=== PATIENT | female | born 1975 | race Caucasian/White ===

== ENCOUNTER 2019-05-30 10:50 | Emergency (ER) | payer MEDICAID, MEDICARE ==
[~2019-05-30] VITALS: Ht 172.7 cm; Wt 52.6 kg
[~2019-05-30 10:50] MED LIST: ALPR1TAB2 PO; CARI-277 PO; ENTECAVIR PO; FLU05NSL; ZOLP10TA PO
[2019-05-30 13:28] VITALS: BP 123/81
== END 2019-05-30 13:58 | disposition home or self-care (01) ==
LOC: ER 10:50
DX: G89.4 Chronic pain syndrome (principal); M54.5 Low back pain; F17.210 Nicotine dependence, cigarettes, uncomplicated; F12.10 Cannabis abuse, uncomplicated; F41.9 Anxiety disorder, unspecified; Z76.0 Encounter for issue of repeat prescription; Z88.6 Allergy status to analgesic agent
CPT/HCPCS: 81002; 81025

== ENCOUNTER 2020-04-29 15:21 | Inpatient (IN) | payer MEDICARE, MEDICAID ==
[~2020-04-29] VITALS: Ht 172.7 cm; Wt 52.2 kg
[2020-04-29] MEDS ORDERED: SODIUM CHLORIDE 0.9% 1,000 ML IV ONE ×2 (16:00)
[2020-04-29] MEDS ORDERED: NITROGLYCERIN 0.4 MG SL TAB SL PRN (18:45)
[2020-04-29] MEDS ORDERED: MORPHINE SULF INJ 2 MG/ML SYRINGE 1ML IV PRN (18:45)
[2020-04-29] MEDS ORDERED: HYDROmorphone HCL 2 MG/ML VL IV ONE (19:30)
[2020-04-29] MEDS ORDERED: ONDANSETRON HCL 4 MG/2 ML VIAL IV PRN (21:30)
[2020-04-29] MEDS ORDERED: HYDROcodone-ACET 7.5/325MG TAB PO PRN (21:30)
[2020-04-29 21:31] LABS: Basophils # (auto) 0.1 10 ^3/uL (0-0.2); Basophils % (auto) 0.7 % (0.0-2.0); Eosinophils # (auto) 0.1 10 ^3/uL (0-0.8); Eosinophils % (auto) 1.1 % (0.0-7.0); Hemoglobin 14.7 g/dL (12.2-16.2); Lymphocytes # (auto) 1.2 10 ^3/uL (0.4-5.4); Lymphocytes % (auto) 14.8 % (10.0-50.0); Mean Corpuscular Hemoglobin 33.6 pg (28.0-32.0); Mean Corpuscular Hgb Conc. 34.3 g/dL (32.0-36.0); Monocytes # (auto) 0.5 10 ^3/uL (0-1.3); Monocytes % (auto) 6.6 % (0.0-12.0); Neutrophils # (auto) 6.2 10 ^3/uL (1.6-8.6); Neutrophils % (auto) 76.8 % (37.0-80.0); Nucleated Red Blood Cells % 0.1 %; Platelet Count (auto) 255 10^3/uL (140-450); Red Blood Cells 4.39 10^6/uL (4.0-5.20); Red Cell Distribution Width 12.4 % (11.8-14.3); White Blood Cell 8.1 10^3/uL (4.4-10.8)
[2020-04-29] MEDS ORDERED: OXYC325T14 PO (21:41)
[2020-04-29] MEDS ORDERED: TRAZ300T16 PO (21:41)
[2020-04-29] MEDS ORDERED: AMPH10TA2 PO (21:41)
[2020-04-29] MEDS ORDERED: ZOLP5TAB5 PO (21:41)
[2020-04-29] MEDS ORDERED: DICL1GEL50 TD (21:42)
[2020-04-29] MEDS ORDERED: MULT1TAB70 PO (21:42)
[2020-04-29] MEDS ORDERED: CALC-386 PO (21:42)
[2020-04-29 21:44] LABS: INR 1.05 (0.9-1.15)
[2020-04-29 21:45] LABS: Alanine Aminotransferase 12 U/L (13-56); Anion Gap 5 (5-15); Aspartate Aminotransferase 6 U/L (15-37); BUN/Creatinine Ratio 15.3; Blood Urea Nitrogen 9 mg/dL (7-18); Calcium 8.6 mg/dL (8.5-10.1); Carbon Dioxide 27 mmol/L (21-32); Chloride 105 mmol/L (98-107); GFR African American 141 mL/min; GFR Non-African American 117 mL/min; Glucose 90 mg/dL (74-106); Potassium 4.2 mmol/L (3.5-5.1); Sodium 137 mmol/L (136-145)
[2020-04-29 21:49] LABS: Alkaline Phosphatase 57 U/L (45-117); Bilirubin, Total 0.2 mg/dL (0.2-1.0); Total Protein 7.7 g/dL (6.4-8.2)
[2020-04-29 22:00] VITALS: BP 115/83
[2020-04-29] MEDS ORDERED: TEMAZEPAM 15 MG CAP PO ONE (22:15)
--- NOTE | 2020-04-29 22:49 | NUR ---
tele admit from ED pt arrived via wheelchair awake alert and oriented. pt on room air, no respiratory distress noted or expressed. pt tearful, this oriented her to room, bathroom, bed control, call light and this nurse. pt stated "head hurts" rates pain 9/0-10 scale. this nurse updated pt on plan of care. this nurse offered pt medication that is presently on patients MAR, norco, to which she replied "i have pills stronger than that in my purse". this nurse also let pt know she has meds for sleep, restoril, pt then stated she needed to go have a smoke, signed AMA and was made aware of risks associated with leaving the floor,to which she responded "ill be right back". pt off unit.
[2020-04-29] MEDS ORDERED: SUMAtriptan SUCCINATE 25 MG TAB PO ONE (23:15)
[2020-04-30] MEDS ORDERED: NITROGLYCERIN 0.4 MG SL TAB SL PRN
[2020-04-30] MEDS ORDERED: MULTIPLE VITAMINS W/ MINERALS TAB PO ONE
[2020-04-30] MEDS ORDERED: ONDANSETRON HCL 4 MG/2 ML VIAL IV PRN
[2020-04-30] MEDS ORDERED: ACETAMINOPHEN 325 MG TAB PO PRN
[2020-04-30] MEDS ORDERED: HYDROcodone-ACET 10/325MG TAB PO PRN
[2020-04-30] MEDS ORDERED: ALUM & MAG HYDROX-SIMETH LIQ(MAALOX) 30 ML PO PRN
[2020-04-30] MEDS ORDERED: DOCUSATE SOD 100 MG CAP PO PRN
[2020-04-30 00:07] VITALS: BP 118/70
--- NOTE | 2020-04-30 02:00 | NUR ---
pt complaints of 'migraine', hospitalist paged.
--- NOTE | 2020-04-30 02:45 | NUR ---
paged hospitalist again, no call back from prior. received order.
[2020-04-30] MEDS ORDERED: HYDROcodone-ACET 7.5/325MG TAB PO ONE (03:00)
--- NOTE | 2020-04-30 04:40 | NUR ---
pt requesting to be unhooked from IV in order to smoke, upon entering room pt stated "i feel fine now, tell the doctor im going to go home", upon further inquiry pt stated that she would be having her mother pick her up "after seven". pt stated "people have been coming in here trying to perform tests on me that are irrelevant". this nurse educated pt on risks associated with leaving AMA. to which she replied "i feel fine now", however, while crying. pt refused to elaborate. Addendum: 04/30/20 at 0557 by VIRI TABOR RN RN pt denies desire to leave AMA, states "im going to wait for the doctor and tell them im feeling better so i can get discharged", "im not leaving before i see the doctor". pt continues to state "i feel better".
[2020-04-30] MEDS: BUDESONIDE (INHALATION) 0.5 MG/2 ML NEB NEB SCH ×2 (06:58→10:00)
--- NOTE | 2020-04-30 06:58 | NUR ---
PT REFUSED PULMICORT MED NEB AT THE TIME SHOWN ABOVE. PT SAID SHE DOES NOT HAVE ANY PULMONARY HISTORY THEREFORE SHE WILL NOT TAKE IT. RN WILL BE NOTIFIED.
--- NOTE | 2020-04-30 07:42 | NUR ---
Opening Shift Note Assumed care of patient, awake and alert. No S/S of distress/SOB, patient reports 10/10 headache pain, patient states norco will not work, will page hospitalist for stronger pain medication. Instructed on POC and to call for assist PRN. Bed locked in lowest position, side rails up x2, call light within reach. Will continue to monitor for changes Q1hr and PRN.
[2020-04-30] MEDS: CALCIUM W/VIT D (600MG/400IU) TAB PO SCH ×2 (08:00→17:11)
[2020-04-30] MEDS ORDERED: MORPHINE SULF INJ 2 MG/ML SYRINGE 1ML IV PRN ×2 (08:15)
--- NOTE | 2020-04-30 08:30 | NUR ---
PATIENT REFUSING TELE AND IV FLUIDS PATIENT DOES NOT WANT TO BE CONNECTED TO IV PUMP AND DOES NOT WANT TELE ON AT THIS TIME. EDUCATED PATIENT. PATIENT CONTINUES TO REFUSE. PATIENT IS VERY AGITATED AND UPSET WITH HER SITUATION AND DOES NOT UNDERSTAND WHY TESTS ARE BEING ORDERED WHEN IT DOES NOT RELATE TO HER CURRENT VISIT. WILL ATTEMPT TO RECONNECT PATIENT ONCE PAIN AND ANXIETY HAS RESOLVED.
[2020-04-30] MEDS: HYDROmorphone HCL 2 MG/ML VL IV PRN ×4 (08:33→19:55)
[2020-04-30] MEDS: LORazepam 0.5 MG TAB PO PRN ×3 (08:34→21:51)
[2020-04-30 08:40] VITALS: BP 151/91
[2020-04-30] MEDS: diphenhdrAMINE HCL 50 MG/1 ML VL IV PRN ×2 (08:50→18:11)
[2020-04-30] MEDS: ENOXAPARIN SOD 40 MG/0.4 ML SYRINGE SC SCH (10:00)
[2020-04-30] MEDS: FAMOTIDINE (10MG/ML) 2ML VL IV SCH ×2 (10:03→21:50)
[2020-04-30] MEDS: MULTIPLE VITAMINS W/ MINERALS TAB PO SCH (10:03)
[2020-04-30 12:45] VITALS: BP 112/77
--- NOTE | 2020-04-30 13:00 | NUR ---
PATIENT CONNECTED TO IV FLUIDS AND TELE MONITOR. WILL CONTINUE CARE.
[2020-04-30 15:13] LABS: Basophils # (auto) 0.1 10 ^3/uL (0-0.2); Basophils % (auto) 0.9 % (0.0-2.0); Eosinophils # (auto) 0.1 10 ^3/uL (0-0.8); Eosinophils % (auto) 2.1 % (0.0-7.0); Hematocrit 40.4 % (36.0-46.0); Hemoglobin 14.3 g/dL (12.2-16.2); Lymphocytes # (auto) 1.3 10 ^3/uL (0.4-5.4); Lymphocytes % (auto) 19.8 % (10.0-50.0); Mean Corpuscular Hemoglobin 34.4 pg (28.0-32.0); Mean Corpuscular Hgb Conc. 35.3 g/dL (32.0-36.0); Mean Corpuscular Volume 97.5 fL (80.0-100.0); Monocytes # (auto) 0.5 10 ^3/uL (0-1.3); Monocytes % (auto) 7.6 % (0.0-12.0); Neutrophils # (auto) 4.7 10 ^3/uL (1.6-8.6); Neutrophils % (auto) 69.6 % (37.0-80.0); Platelet Count (auto) 274 10^3/uL (140-450); Red Blood Cells 4.14 10^6/uL (4.0-5.20); Red Cell Distribution Width 12.1 % (11.8-14.3); White Blood Cell 6.7 10^3/uL (4.4-10.8)
[2020-04-30 15:21] LABS: Albumin 3.9 g/dL (3.4-5.0); Anion Gap 4 (5-15); Blood Urea Nitrogen 11 mg/dL (7-18); Calcium 8.3 mg/dL (8.5-10.1); Carbon Dioxide 29 mmol/L (21-32); Chloride 103 mmol/L (98-107); Glucose 81 mg/dL (74-106); Magnesium 2.1 mg/dL (1.6-2.6); Sodium 136 mmol/L (136-145)
[2020-04-30] MEDS ORDERED: LIDOCAINE 2%HCL (LOCAL ANESTH.) INJ 20ML MDV ONE (15:22)
--- NOTE | 2020-04-30 15:25 | NUR ---
PATIENT TAKEN TO LUGGAGE REPAIRER NO DISTRESS NOTED.
[2020-04-30 15:26] LABS: Alanine Aminotransferase 12 U/L (13-56); Alkaline Phosphatase 50 U/L (45-117); Aspartate Aminotransferase 5 U/L (15-37); BUN/Creatinine Ratio 14.1; Bilirubin, Total 0.3 mg/dL (0.2-1.0); Cholesterol 162 mg/dL (< 200); GFR African American 102 mL/min; GFR Non-African American 85 mL/min; HDL Cholesterol 60 mg/dL (40-59); LDL Cholesterol 94 mg/dL (< 100); Phosphorus 3.9 mg/dL (2.5-4.90); Total Protein 7.3 g/dL (6.4-8.2); Triglycerides 79 mg/dL (< 150)
[2020-04-30 15:30] LABS: INR 1.04 (0.9-1.15); Partial Thromboplastin Time 28.6 sec (23.0-31.2)
--- NOTE | 2020-04-30 16:00 | NUR ---
PATIENT BACK FROM INSTRUMENT ENGINEER PROCEDURE NOT DONE. PATIENT WAS NOT NPO NO ONE NOTIFIED PRIMARY RN OF PROCEDURE BEING DONE TODAY. PATIENT IS NOW REFUSING TO HAVE PROCEDURE DONE. PATIENT IS IN 10/10 HEADACHE PAIN, WILL MEDICATE PER MD ORDERS.
[2020-04-30] MEDS: SODIUM CHLORIDE 0.9% 1,000 ML IV SCH ×3 (16:16→20:38)
--- NOTE | 2020-04-30 16:53 | NUR ---
PATIENT NAUSEAS PATIENT STATES SHE THINKS SHE IS ALLERGIC TO ZOFRAN BUT NEEDS NAUSEA MEDICATION. SPOKE WITH MD BO RECEIVED NEW ORDERS. WILL INPUT AND FOLLOW THROUGH.
[2020-04-30 16:56] VITALS: BP 117/71
[2020-04-30] MEDS: PROMETHAZINE HCL 25 MG/ML 1ML IV PRN (18:11)
--- NOTE | 2020-04-30 19:30 | NUR ---
Opening Shift Note Assumed care of patient, awake and alert. Reported pain.pain med will be given. Instructed on POC and to call for assist PRN, will continue to monitor for changes Q1hr and PRN.
--- NOTE | 2020-04-30 20:00 | NUR ---
pt went down to smoke
--- NOTE | 2020-04-30 20:30 | NUR ---
paged hospitalist for pt's sleeping pill and desyrel dosage. new order received stated desyrel will work up tomorrow
[2020-04-30] MEDS ORDERED: TEMAZEPAM 15 MG CAP PO PRN (21:30)
[2020-04-30 21:31] VITALS: BP 122/75
[2020-04-30] MEDS: traZODone HCL 50 MG TAB PO SCH (21:51)
[2020-04-30] MEDS ORDERED: traZODone HCL 50 MG TAB PO SCH (22:00)
[2020-05-01] MEDS: HYDROmorphone HCL 2 MG/ML VL IV PRN ×6 (00:26→21:27)
[2020-05-01] MEDS: diphenhdrAMINE HCL 50 MG/1 ML VL IV PRN ×3 (04:29→21:04)
[2020-05-01] MEDS: PROMETHAZINE HCL 25 MG/ML 1ML IV PRN ×3 (04:29→23:38)
[2020-05-01 05:00] VITALS: BP 109/63
--- NOTE | 2020-05-01 07:30 | NUR ---
closing note endorsed care to day RN, pt is resting with eyes closed, no sign of distress noted at this time
--- NOTE | 2020-05-01 07:35 | NUR ---
Opening Shift Note Assumed care of patient, awake and alert. No S/S of distress/SOB, patient reports 10/10 headache pain, will medicate per MD orders once available. Instructed on POC and to call for assistance as needed. Bed locked in lowest position, side rails up x2, call light within reach. Safety precautions in place. Will continue to monitor for changes Q1hr and PRN.
[2020-05-01] MEDS: CALCIUM W/VIT D (600MG/400IU) TAB PO SCH ×2 (08:00→17:57)
[2020-05-01] MEDS: FAMOTIDINE (10MG/ML) 2ML VL IV SCH ×2 (08:41→21:27)
[2020-05-01] MEDS: LORazepam 0.5 MG TAB PO PRN ×3 (08:41→23:38)
[2020-05-01] MEDS: MULTIPLE VITAMINS W/ MINERALS TAB PO SCH (08:41)
[2020-05-01] MEDS: ENOXAPARIN SOD 40 MG/0.4 ML SYRINGE SC SCH (08:42)
[2020-05-01 09:00] VITALS: BP 111/71
[2020-05-01 13:00] VITALS: BP 122/80
[2020-05-01 16:46] VITALS: BP 103/53
--- NOTE | 2020-05-01 19:11 | NUR ---
IV insertion IV access obtained, via clean sterile technique by inserting 22 gauge catheter at RIGHT FOREARM after 2 attempt(s). IV secured properly. No trauma to site. Patient tolerated well. NOTE: [RIGHT HAND 22G LEAKING AND PAINFUL, REMOVED WITH WITH CLEAN STERILE TECHNIQUE, CATHETER FULLY INTACT. PRESSURE DRESSING APPLIED. PATIENT TOLERATED WELL]
[2020-05-01] MEDS ORDERED: LORazepam 2MG/ML-1ML VIAL IV PRN ×2 (20:30→21:00)
[2020-05-01] MEDS ORDERED: DexAMETHasone INJECTION 10 MG in D5W 5% 50 ML IV ONE (20:45)
--- NOTE | 2020-05-01 21:00 | NUR ---
PT AMBULATING OUTSIDE FREQUENTLY TO SMOKE.
[2020-05-01] MEDS: METOCLOPRAMIDE HCL 10 MG TAB PO SCH (21:03)
[2020-05-01] MEDS: traZODone HCL 50 MG TAB PO SCH (21:04)
--- NOTE | 2020-05-01 21:15 | NUR ---
DR AMIN IN TO SEE PATIENT. PT WANTS PAIN MEDICATION INCREASED ; DILAUDID EVERY TWO HOURS. DR AMIN DECLINED. WILL CONTINUE TO MONITOR.
[2020-05-01] MEDS: ATORVASTATIN 20 MG TAB PO SCH (21:27)
[2020-05-01 22:00] VITALS: BP 114/69
[2020-05-02] MEDS: SODIUM CHLORIDE 0.9% 1,000 ML IV SCH ×2 (02:00→18:15)
[2020-05-02] MEDS: HYDROmorphone HCL 2 MG/ML VL IV PRN ×5 (04:13→21:42)
[2020-05-02] MEDS: diphenhdrAMINE HCL 50 MG/1 ML VL IV PRN ×4 (04:46→20:25)
[2020-05-02 05:00] VITALS: BP 105/61
[2020-05-02] MEDS: PROMETHAZINE HCL 25 MG/ML 1ML IV PRN ×3 (06:21→21:40)
[2020-05-02] MEDS: METOCLOPRAMIDE HCL 10 MG TAB PO SCH ×3 (06:22→20:22)
[2020-05-02] MEDS: LORazepam 0.5 MG TAB PO PRN ×3 (06:22→23:35)
[2020-05-02] MEDS: CALCIUM W/VIT D (600MG/400IU) TAB PO SCH ×2 (08:04→17:57)
[2020-05-02] MEDS: FAMOTIDINE (10MG/ML) 2ML VL IV SCH ×2 (08:04→20:26)
[2020-05-02] MEDS: MULTIPLE VITAMINS W/ MINERALS TAB PO SCH (08:04)
[2020-05-02 08:56] VITALS: BP 109/70
[2020-05-02] MEDS: ASPirin-EC 81 mg tab PO SCH (10:00)
[2020-05-02] MEDS: ENOXAPARIN SOD 40 MG/0.4 ML SYRINGE SC SCH (10:00)
--- NOTE | 2020-05-02 10:30 | NUR ---
PATIENT TAKEN DOWN TO BRAIN MRI AND BROUGHT BACK NO S/S OF DISTRESS NOTED AT THIS TIME.
[2020-05-02 10:36] LABS: Hepatitis A Ab IgM Negative; Hepatitis B Core IgM Negative; Hepatitis C Antibody Negative (Negative)
--- NOTE | 2020-05-02 10:42 | NUR ---
Mikey BO AT THE BEDSIDE. INFORMED OF PATIENT STATUS. INFORMED THAT THIS RN HELD BLOOD THINNERS THIS AM DUE TO PENDING PROCEDURE. INFORMED OF PATIENTS WHEEZING. RECEIVED NEW ORDERS SEE EMAR. Addendum: 05/02/20 at 1858 by GALINA SKELTON RN RN Mikey AWARE OF PATIENTS REPORT OF LACK OF BM.
[2020-05-02] MEDS: DexAMETHasone INJECTION 10 MG in D5W 5% 50 ML IV SCH (11:37)
[2020-05-02] MEDS ORDERED: ALBUTEROL SULF 2.5 MG/0.5ML(0.5%) NEB SOLN NEB PRN (11:45)
[2020-05-02 13:00] VITALS: BP 109/64
--- NOTE | 2020-05-02 13:16 | NUR ---
CALLED AND LEFT MESSAGE WITH [facility]. AWAITING CALL BACK.
--- NOTE | 2020-05-02 15:34 | NUR ---
REGARDING [facility]: SPOKE WITH WADE CHARGE NURSE IN REGARDS TO PATIENTS COMPLICATIONS POST-OP FROM [facility]. PER CHARGE NURSE WADE THERE IS NO SPECIFIC HOSPITAL THEY TRANSFER PATIENTS TOO. THIS RN WAS PROVIDED Mikey RENE'S PHONE NUMBER: [phone]. Mikey BO AWARE. Addendum: 05/02/20 at 1858 by GALINA SKELTON RN RN Mikey BYRNE FOR Mikey BO TO CALL.
[2020-05-02 16:39] VITALS: BP 101/68
--- NOTE | 2020-05-02 19:40 | NUR ---
Opening Shift Note Assumed care of patient, awake and alert x4. No S/S of distress/SOB. Instructed on POC and to call for assistance as needed. Bed locked in lowest position, side rails up x2, call light within reach. Safety precautions in place. Will continue to monitor for changes Q1hr and PRN.
[2020-05-02] MEDS: ATORVASTATIN 20 MG TAB PO SCH (20:22)
[2020-05-02 21:00] VITALS: BP 96/112
[2020-05-02 21:07] VITALS: BP 101/68
[2020-05-02] MEDS ORDERED: traZODone HCL 50 MG TAB PO SCH (22:00)
--- NOTE | 2020-05-02 23:40 | NUR ---
Patient is ambulating downstairs to smoke.
--- NOTE | 2020-05-02 23:55 | NUR ---
Patient is back in her room.
[2020-05-03 05:00] VITALS: BP 99/56
[2020-05-03] MEDS: METOCLOPRAMIDE HCL 10 MG TAB PO SCH (06:27)
[2020-05-03] MEDS: PROMETHAZINE HCL 25 MG/ML 1ML IV PRN (06:35)
[2020-05-03] MEDS: HYDROmorphone HCL 2 MG/ML VL IV PRN ×2 (06:40→10:46)
--- NOTE | 2020-05-03 06:56 | NUR ---
IV insertion IV access obtained, via clean sterile technique by inserting 20 gauge catheter at LFA after 1 attempt(s). IV secured properly. No trauma to site. Patient tolerated well. IV remova from RFA due to infiltration and pain. IV DC'd with clean sterile technique, catheter fully intact. Pressure dressing applied to site. Patient tolerated well. Warm pack applied to arm.
--- NOTE | 2020-05-03 07:30 | NUR ---
opening note assumed care of patient from NOC RN. No s/s of distress noted. Bed in lowest locked position, call light within reach and side rails up x2. Updated patient on plan of care, and patient verbalized understanding. Instructed patient on AMA to smoke policy and patient verbalized understanding. Will continue to monitor q1hr and PRN.
--- NOTE | 2020-05-03 07:35 | NUR ---
Respiratory note: PT IS RESTING COMFORTABLY. NO RESPIRATORY DISTRESS NOTED. SPO2 97% ON RA, HR 71, RR 16, BS CLEAR BILATERALLY. PRN MEDNEB TX NOT INDICATED AT THIS TIME. NO FURTHER RESPIRATORY INTERVENTIONS INDICATED AT THIS TIME. WILL CONTINUE TO MONITOR PT.
[2020-05-03 08:46] VITALS: BP 101/68
[2020-05-03] MEDS: diphenhdrAMINE HCL 50 MG/1 ML VL IV PRN (09:07)
[2020-05-03] MEDS: CALCIUM W/VIT D (600MG/400IU) TAB PO SCH (09:08)
[2020-05-03] MEDS: FAMOTIDINE (10MG/ML) 2ML VL IV SCH (09:08)
[2020-05-03] MEDS: MULTIPLE VITAMINS W/ MINERALS TAB PO SCH (09:09)
[2020-05-03] MEDS: ASPirin-EC 81 mg tab PO SCH (09:09)
[2020-05-03] MEDS: LORazepam 0.5 MG TAB PO PRN (09:10)
[2020-05-03] MEDS: ENOXAPARIN SOD 40 MG/0.4 ML SYRINGE SC SCH (09:14)
[2020-05-03] MEDS: DexAMETHasone INJECTION 10 MG in D5W 5% 50 ML IV SCH (10:00)
--- NOTE | 2020-05-03 10:29 | NUR ---
physician rounding Dr. Poole at bedside. MD updated patient on plan of care. New orders received, will follow through.
[2020-05-03 12:23] VITALS: BP 101/68
[2020-05-03 13:00] VITALS: BP 116/69
--- NOTE | 2020-05-03 13:25 | NUR ---
Discharge note Discharge instructions given as ordered. Encourage to follow up with PMD as instructed. All questions and concerns addressed. Patient verbalized understanding. IV removed with catheter intact, pressure dressing applied. Telemetry unit returned to ICU. Patient taken to vehicle via wheelchair with all personal belongings, accompanied by staff member. No distress noted at time of departure. Addendum: 05/03/20 at 1605 by VIC BENITEZ RN PATIENT SENT WITH WRITTEN PRESCRIPTION.
[2020-05-03 14:05] LABS: Hepatitis B Surface Antigen Negative (Negative)
--- NOTE | 2020-05-03 15:24 | NUR ---
assessment Patient has no post discharge needs identified at this time. Addendum: 05/03/20 at 1525 by Nadine RENDON Amended: Links added.
== END 2020-05-03 13:27 | disposition home or self-care (01) | DRG 103 ==
LOC: ER 15:21 → TELE 15:22 → TELE-WESTW 22:20
PROVIDERS: ADMIT Hospitalist; ATTEND Family Medicine
DX: G44.40 Drug-induced headache, not elsewhere classified, not intractable (principal); G96.00 Cerebrospinal fluid leak, unspecified; F11.20 Opioid dependence, uncomplicated; J45.909 Unspecified asthma, uncomplicated; E78.5 Hyperlipidemia, unspecified; G43.101 Migraine with aura, not intractable, with status migrainosus; F32.9 Major depressive disorder, single episode, unspecified; F41.9 Anxiety disorder, unspecified; G93.2 Benign intracranial hypertension; F12.90 Cannabis use, unspecified, uncomplicated; F17.210 Nicotine dependence, cigarettes, uncomplicated; F98.8 Other specified behavioral and emotional disorders with onset usually occurring in childhood and adolescence; G89.4 Chronic pain syndrome; Z90.710 Acquired absence of both cervix and uterus; Z98.1 Arthrodesis status; M54.5 Low back pain; Z90.49 Acquired absence of other specified parts of digestive tract; Y84.8 Other medical procedures as the cause of abnormal reaction of the patient, or of later complication, without mention of misadventure at the time of the procedure; Y92.89 Other specified places as the place of occurrence of the external cause; T38.0X5A Adverse effect of glucocorticoids and synthetic analogues, initial encounter
CPT/HCPCS: 36415; 70450; 70551; 71045; 80053; 80061; 80074; 82728; 83036; 83735; 84100; 84484; 85025; 85610; 85730; 87040; 94640; 96361; 96374; 96375; G0378; J1100; J2405; J3490; J7060

== ENCOUNTER 2024-05-11 06:50 | Day surgery (SDC) | payer MEDICAID, MEDICARE, OTHER ==
[~2024-05-11] VITALS: Ht 172.7 cm; Wt 49.9 kg
[~2024-05-11 06:50] MED LIST changes: -ALPR1TAB2 PO; +CALC-386 PO; -CARI-277 PO; -ENTECAVIR PO; +ESTR0.1C VA; +HYDR-3682 PO; +MULT1TAB70 PO; +NAP500T PA; +PANT40TA2 PO; +PROG200C21 PO; +TRAZ300T16 PO; -ZOLP10TA PO; +ZOLP5TAB5 PO
[2024-05-11 08:20] VITALS: TEMP 99.3
--- NOTE | 2024-05-11 11:13 | DVHHP2 ---
GI H&P Pre-Op Assessment Date: 05/11/24 Chief complaint: abdominal pain HPI: per clinic note Past medical history: per clinic note Past surgical history: per clinic note Family history: per clinic note Physical exam: General: NAD, AAOX3 HEENT: PERRL, no scleral icterus, normal hearing, gums without lesions or ble eding, oropharynx clear without erythema or exudate. Neck: Supple without enlargement of the thyroid, or lymphadenopathy. Chest: Normal size and shape, no tenderness, lung melgar clear to auscultation and percussion, nonlabored breathing. Heart: RRR, no murmur Abdomen: non-distended, no tenderness to palpation, +BS, no hepatosplenomegaly Extremities: no edema Neurological: CN II-XII intact, sensation intact in all extremities, 5+ strength in all extremities Skin: No rashes, No jaundice Assessment: - abdominal pain Plan: - EGD - Colonoscopy - Risks (bleeding, infection, perforation, reaction to sedation medications and cardiopulmonary arrest) and benefit of the procedure were explained to patient. Patient agrees to undergo the procedure. RYAN DAVIS MD May 11, 2024 11:13
[2024-05-11] MEDS: HYDROmorphone HCL 2 MG/ML VL/or syr IV PRN (11:15)
--- NOTE | 2024-05-11 11:15 | DVHOP2 ---
Operative Report DATE OF OPERATION: 05/11/24 PROCEDURE: Upper Endoscopy. PREOPERATIVE INDICATION: The patient is a 48 -year-old female undergoing endoscopy for abdominal pain. POSTOPERATIVE DIAGNOSES: 1. Gastritis PROCEDURE PERFORMED BY: Nba Mcclure SCOPE: Olympus videoendoscope. ASA CLASS: 3 PREOPERATIVE MEDICATIONS: MAC with Dr Lee PROCEDURE IN DETAIL: After obtaining an informed consent, the patient was placed on left lateral decubitus position. The patient was then sedated with the above medications. A bite block was placed between her teeth. The endoscope was then passed through the oropharynx, into the esophagus, and through the stomach and pylorus up to the second and third part of the duodenum. The duodenum was normal appearance. There was gastritis. Gastric biopsies were obtained. The GE junction was normal in appearance at 40 cm. The esophagus was normal in appearance. The endoscope was then withdrawn. The patient tolerated the procedure well without difficulty. COMPLICATIONS : None SPECIMENS: Gastric biopsies DISPOSITION: D/C to home PLAN: 1. Await for biopsy result 2. Continue with Protonix NBA MCCLURE MD May 11, 2024 11:15
--- NOTE | 2024-05-11 11:16 | DVHOP2 ---
Operative Report DATE OF OPERATION: 05/11/24 PROCEDURE: Colonoscopy. PREOPERATIVE INDICATION: The patient is a 48 -year-old female undergoing colonoscopy for abdominal pain. POSTOPERATIVE DIAGNOSES: 1. Normal terminal ileum 2. Normal colonic mucosa 3. Internal hemorrhoids PROCEDURE PERFORMED BY: Nba Mcclure M.D. SCOPE: Olympus videocolonoscope. ASA CLASS: 3 PREOPERATIVE MEDICATIONS: MAC with Dr Lee PROCEDURE IN DETAIL: After obtaining an informed consent, the patient was placed on left lateral decubitus position. She was then sedated with the above medications. A rectal examination was performed that was normal. The colonoscope was then passed through the anus into the rectosigmoid and through the descending, transverse, and ascending colon up to the cecum with visualization of the appendiceal orifice, base of the cecum and the ileocecal valve. The colonoscope was advanced into terminal ileum. The terminal ileum was normal in appearance. The colonic mucosa was normal in appearance. No polyp no mass was observed. There were internal hemorrhoids. The colonoscope was then withdrawn. The patient tolerated the procedure well without difficulty. WITHDRAWAL TIME: 9 minutes QUALITY OF THE PREP: [place] Bowel Prep score: 5 COMPLICATIONS : None SPECIMENS: None DISPOSITION: D/C to home PLAN: 1. Continue with NBA Scales MD May 11, 2024 11:16
--- NOTE | 2024-05-11 11:17 | DVHDS2 ---
Physician Discharge Progress N Final Diagnosis: Gastritis Normal colonoscopy, normal terminal ileum Operations or Procedures: Operations or Procedures EGD with biopsy Colonoscopy. Condition on Discharge: Good Disposition: Home Discharge Instructions: Diet: Regular Activity: No Restrictions, As Tolerated Medications: Resume previous home medications Follow Up Care: Discharge Statement: "Patient was advised to return to the ER or call 911 if any headaches, dizziness, shortness of breath, chest pain, abdominal pain, bleeding, fevers, or worsening of medical condition. Patient was counseled about treatment plan, medications, possible side effects, patientverbalized understanding. All questions were answered to the best of my ability. This discharge took greater then 30 minutes in planning, reviewing documentation, counseling the patient, and discussing with other team members." RYAN DAVIS MD May 11, 2024 11:17
[2024-05-11 11:25] VITALS: PULSE 88; RESP 14; O2SAT 98
[2024-05-11] MEDS ORDERED: HYDROmorphone HCL 2 MG/ML VL/or syr IV STA (11:35)
[2024-05-11] MEDS ORDERED: MIDAZOLAM HCL 2MG/2ML 2ml VIAL (1mg/ml) IV PRN (11:45)
[2024-05-11] MEDS ORDERED: ePHEDrine SULFATE 50 MG/ML AMP IV PRN (11:45)
[2024-05-11] MEDS ORDERED: fentaNYL CITRATE 100 MCG/2 ML VL IV PRN (11:45)
[2024-05-11] MEDS ORDERED: LIDOCAINE VISCOUS 2% 15ML UD ONE (11:51)
[2024-05-11] MEDS ORDERED: fentaNYL CITRATE 100 MCG/2 ML VL ONE (11:57)
[2024-05-11] MEDS ORDERED: MEPERIDINE HCL (25 MG/ML) 1ML VIAL ONE (11:57)
[2024-05-11] MEDS ORDERED: MIDAZOLAM HCL 2MG/2ML 2ml VIAL (1mg/ml) ONE (11:57)
[2024-05-11] MEDS ORDERED: PROPOFOL 10 MG/ML 20 ML IV ONE (12:10)
[2024-05-11] MEDS ORDERED: DexAMETHasone SOD PHOS 10MG/1ML VIAL INJ ONE (12:10)
[2024-05-11 12:15] VITALS: BP 105/68; PULSE 76; RESP 18; O2SAT 97
[2024-05-11] MEDS ORDERED: HYDROmorphone HCL 2 MG/ML VL/or syr ONE (12:49)
== END 2024-05-11 12:35 | disposition home or self-care (01) ==
LOC: GI 06:50
PROVIDERS: ATTEND Internal Medicine Gastroenterology
DX: R10.9 Unspecified abdominal pain (principal); K64.8 Other hemorrhoids; K29.50 Unspecified chronic gastritis without bleeding; R14.0 Abdominal distension (gaseous); R63.0 Anorexia; R63.4 Abnormal weight loss; J45.909 Unspecified asthma, uncomplicated; F17.210 Nicotine dependence, cigarettes, uncomplicated; F15.90 Other stimulant use, unspecified, uncomplicated; F41.9 Anxiety disorder, unspecified; Z68.1 Body mass index [BMI] 19.9 or less, adult; Z79.899 Other long term (current) drug therapy; Z90.710 Acquired absence of both cervix and uterus; Z98.891 History of uterine scar from previous surgery; Z86.0100 Personal history of colon polyps, unspecified; Z98.890 Other specified postprocedural states; Z88.5 Allergy status to narcotic agent; Z91.041 Radiographic dye allergy status
CPT/HCPCS: 43239; 45378; 88305; 88312; 88342; J1100; J1171; J2175; J2250; J2704; J3010; J7030